=== PATIENT | male | born 1970 | race Caucasian/White ===

== ENCOUNTER → 2017-04-15 | Outpatient (CLI) | payer OTHER ==
[2017-04-15 17:56] LABS: T4 (THYROXINE) 10.1 ug/dL (4.7-13.3); TSH (3RD GENERATION) 3.81 uIU/mL (0.358-3.74)
== END ==
LOC: LAB 14:49
PROVIDERS: ATTEND Family Medicine
DX: Z79.899 Other long term (current) drug therapy (principal)
CPT/HCPCS: 36415; 84436; 84443; 84480

== ENCOUNTER 2017-12-30 20:34 | Emergency (ER) | payer OTHER ==
[2017-12-30 20:43] VITALS: BP 130/58; BMI 39.9
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
[2017-12-30] MEDS ORDERED: DILAUDID INJ IM ONE (21:17)
[2017-12-30] MEDS ORDERED: DILAUDID INJ ONE (21:23)
== END 2017-12-30 21:57 | disposition home or self-care (01) ==
LOC: ER 20:45
DX: S20.212A Contusion of left front wall of thorax, initial encounter (principal); V49.9XXA Car occupant (driver) (passenger) injured in unspecified traffic accident, initial encounter
CPT/HCPCS: 71111; 96372; 99282; J1170